=== PATIENT | female | born 1980 | race Caucasian/White ===

== ENCOUNTER 2016-11-21 11:52 | Emergency (ER) | payer OTHER ==
--- NOTE | ~2016-11-21 | CT71 ---
[facility] A Service of [facility] & [facility] RADIOLOGY TEXT RESULTS PATIENT: GENI ELLSWORTH LOCATION: [facility] : 84 UNIT #: [id number] AGE: [address]: LANNY WELLS SEX: F ORDER DR: [id number] [facility] [address] [place], [place] [address] [id number] E MR#: [id number] Acc #: [id number] NAME: GENI ELLSWORTH. : 1980 SEX: F STUDY DATE/TIME: 11/21/2016 12:01 UNIT: TX ROOM: STUDY DESCRIPTION: CT Head Wo Contrast Attending Physician: Lanny Wells Aprn Ordering Physician: Ric Garcia M.D. Primary Care Physician: No Primary Care Physician MEDICAL IMAGING REPORT This report is preliminary unless electronic signature is present EXAM CT head, 11/21/2016. HISTORY Right-sided headache. Knot on head times 1 year, became painful last p.m. TECHNIQUE CT head performed skull base through vertex without intravenous contrast. This CT exam was performed with one or more of the following radiation dose reduction techniques: automatic exposure control, adjustment of mA and/or kV according to patient size, and iterative reconstruction. COMPARISON No prior CTs of head for comparison. FINDINGS The brain stem is unremarkable. Cerebellum and cerebral hemispheres show normal swartz matter-white matter differentiation. No hemorrhage. No evidence of acute cortical ischemia. Midline structures nondisplaced. Basal ganglia intact. Ventricles, cisterns and sulci normal in size and contour. No intra- or extraaxial mass effect or abnormal intracranial fluid collection. Visualized intraorbital soft tissues unremarkable. The visualized paranasal sinuses and mastoid air cells are clear. Extracranial soft tissues show no acute-appearing abnormality. There are some subcutaneous lymph nodes in the occipital scalp bilaterally. These have an indeterminate appearance. The most pronounced of these is in the right posterolateral suboccipital scalp with measurement of about 6 mm x 8-9 mm. Correlate with location of patient's palpable abnormality. IMPRESSION 1. No acute abnormality seen in brain. If patient has ongoing neurologic symptoms, consider follow-up imaging, preferably with MRI if the STS. [facility] A Service of [facility] & [facility] RADIOLOGY TEXT RESULTS PATIENT: GENI ELLSWORTH LOCATION: [facility] : 84 UNIT #: [id number] AGE: [address]: LANNY WELLS SEX: F ORDER DR: patient is a candidate. 2. No fracture. 3. No clearly acute or traumatic-appearing soft tissue abnormality in the scalp. In the subcutaneous tissues of the occipital scalp, there are bilateral lymph nodes, which are indeterminate in appearance. The location of the patient's reportedly palpable abnormality is unclear on basis of this examination. The dominant of these occipital scalp nodes is in the right posterolateral suboccipital scalp and measures about 6 to 9 mm in maximum diameter. Correlate with exam and location of palpable abnormality. Dictated by... Spike Pierce M.D. THIS IS AN ELECTRONICALLY VERIFIED REPORT Spike Pierce M.D. at 11/22/2016 5:56 PM [place] TD: 11/21/2016 13:33 JOB #: [id number] MEDICAL IMAGING REPORT Page 1 of 1 COPY
[~2016-11-21 11:52] MED LIST: ADDERALL XR10 MG PO; ALBUTEROL17 GM INH; AMOXICILLIN PO; BUSPAR15 M2 DOB; CIPRO HC OTIC S10 ML OT; DICYCLOMINE HCL20 MG PO; NAPROSYN500 MG PO; OMEPRAZOLE40 M1 PO; PAXIL PO; PHENERGAN25 MG PO; PRENATAL VITAMI1 TA3 PO; PRILOSEC PO; PROMETHAZINE-D240 ML PO; PROZAC PO; PROZAC10 M1; TRILEPTAL PO; TRILEPTAL600 MG; TYLENOL #3 PO; VICODIN 5/500 T1 TAB PO; VOLTAREN50 MG PO; WELLBUTRIN PO; XANAX1 MG PO; ZITHROMAX PO; ZOFRAN ODT4 MG PO
== END 2016-11-21 14:20 | disposition home or self-care (01) ==
LOC: CFTX 11:52
DX: R59.0 Localized enlarged lymph nodes (principal); F17.210 Nicotine dependence, cigarettes, uncomplicated; Z98.890 Other specified postprocedural states; Z88.5 Allergy status to narcotic agent; Z88.6 Allergy status to analgesic agent; Z79.899 Other long term (current) drug therapy
CPT/HCPCS: 70450; 84703; 99284

== ENCOUNTER 2016-12-18 12:32 | Emergency (ER) | payer OTHER | END 2016-12-18 12:52 | disposition home or self-care (01) | LOC: CFTX 12:32 | DX: N61.1 Abscess of the breast and nipple (principal); F41.9 Anxiety disorder, unspecified; F32.9 Major depressive disorder, single episode, unspecified; Z90.49 Acquired absence of other specified parts of digestive tract; Z88.5 Allergy status to narcotic agent; Z88.8 Allergy status to other drugs, medicaments and biological substances; F17.210 Nicotine dependence, cigarettes, uncomplicated | CPT/HCPCS: 99283 ==